=== PATIENT | female | born 1990 | race Caucasian/White ===

== ENCOUNTER 2020-04-20 09:03 | Emergency (ER) | payer OTHER ==
[2020-04-20 09:56] LABS: BILIRUBIN NEGATIVE (NEGATIVE); BLOOD NEGATIVE Ery/uL (NEGATIVE); CLARITY CLEAR (CLEAR); COLOR YELLOW (YELLOW); GLUCOSE (U) NORMAL (NORMAL); LEUKOCYTES TRACE Leu/uL (NEGATIVE); NITRITE NEGATIVE (NEGATIVE); PROTEIN TRACE (LOW) mg/dL (NEGATIVE); UROBILINOGEN 0.2 mg/dL (0.2-1.0)
[2020-04-20 10:12] LABS: BACTERIA 1+
[2020-04-20 10:19] LABS: BASOPHIL 0.5 % (0-2); EOSINOPHIL 1.1 % (0-5); HCT 30.3 % (37.0-47.0); HGB 9.9 g/dl (12.5-16.0); LYMPHOCYTE 15.2 % (15-48); MCH 29.7 pg (25.0-31.0); MCHC 32.7 g/dL (32.0-36.0); MONOCYTE 7.8 % (0-12); MPV 8.9 fL (6.0-9.5); NEUTROPHIL 72.3 % (41-80); NRBC 0; PLT 224 K/uL (150-400); RBC 3.33 M/uL (4.20-5.40); RDW 12.8 % (11.5-14.0)
[2020-04-20 10:21] LABS: BUN/CREAT RATIO (CALC) 10.6 RATIO; CREATININE 0.47 mg/dL (0.51-0.95); POTASSIUM 3.7 mmol/L (3.5-5.1)
[2020-04-20] MEDS ORDERED: FEOSOL325 MG PO (10:53)
== END 2020-04-20 11:27 | disposition home or self-care (01) ==
LOC: FER 09:03
PROVIDERS: Emergency Medicine
DX: O99.012 Anemia complicating pregnancy, second trimester (principal); O99.891 Other specified diseases and conditions complicating pregnancy; R00.2 Palpitations; Z88.1 Allergy status to other antibiotic agents; Z3A.25 25 weeks gestation of pregnancy
CPT/HCPCS: 36415; 80048; 81001; 85025; 93005